=== PATIENT | female | born 1950 | race Caucasian/White ===

== ENCOUNTER → 2017-11-12 | Day surgery (SDC) | payer MEDICARE, OTHER ==
[~2017-11-12] MED LIST: ASPI1TAB57 PO; BIOT5000 PO; BUDE0.5S NEB; BUPIVACAINE HCL PF 0.5% 30 ML VIAL ONE; BYST5TAB2 PO; CELE1CAP8 PO; CEPH250C PO; CYCL-36 PO; DIAZ5TAB PO; DIPH25TA5 PO; EPIP0.3I IM; ESCI20TA PO; FLUT1SPR16; GABA300C5 PO; HYDR-3516 PO; IPRAAER INH; IPRASOL INH; MEDR4TAB PO; MESA1TAB2 PO; METO1TAB9 PO; MISC1TAB9; MONT10TA4 PO; MULT1TAB PO; NITR1SUB3 SL; OMEG1CAP28 PO; PROPOFOL 200 MG/20 ML AMP IV ONE; TEMA30CA PO; THYR15 PO; TRAM-492 PO; TRIAMCINOLONE ACETONIDE 40 MG/ML VIAL I-ARTICULR ONE; VITA100022 PO; Z.0.OXYGEN INH; methylPREDNISolone ACETATE 40 MG/ML VIAL I-ARTICULR ONE
--- NOTE | 2017-11-12 09:54 | M6 ---
cc: Freya Ortiz MD DATE: 11/12/2017 PROCEDURE PERFORMED: Fluoroscopically-guided injection, bilateral sacroiliac joints. History and physical was completed and signed. Consent was signed. Procedure site was marked. Medications were listed and reconciled. Pain score was recorded. Allergies were noted. Time out was taken. Fluoroscopy time was recorded where applicable. Sedation was administered or directed by Dr. Ortiz. The patient was given oxygen. The patient was monitored by a registered nurse. Total procedure time was greater than 15 minutes. DESCRIPTION OF PROCEDURE: IV was started. Blood pressure cuff, pulse oximeter and EKG were applied. The patient was placed in the prone position on a Paul table sedated with small amounts of propofol titrated to effect. Vital signs are monitored and remained stable throughout the procedure. The sacral area was prepped with alcohol and 10% Betadine solution and draped with sterile drapes. Fluoroscopy was used shooting from medial to lateral to clearly visualize the posterior joint line of the bilateral sacroiliac joints. Separate sterile 5 inch, 22-gauge spinal needles were advanced into these joints under fluoroscopic guidance. There was negative aspiration for blood and any other type of fluid. At each location, the patient was given 2 mL of 0.5% Marcaine and 20 mg of Depo-Medrol and 20 mg of Kenalog. Following this, the patient was taken to the recovery room with stable vital signs neurologically intact. Freya Ortiz MD [facility] , 09:37 AM , 09:53 AM
== END | disposition home or self-care (01) ==
LOC: PHSDC 07:48
PROVIDERS: ATTEND Pain Medicine Interventional Pain Medicine
DX: M54.5 Low back pain (principal)
CPT/HCPCS: 99152; G0260; J1030; J3301; 27096